=== PATIENT | male | born 1935 | race Caucasian/White ===

== ENCOUNTER 2017-09-08 01:07 | Emergency (ER) | payer OTHER ==
[~2017-09-08] VITALS: Ht 167.6 cm; Wt 79.4 kg
[2017-09-08] MEDS ORDERED: IOHEXOL 350 MG/ML 100ML IJ ONE (01:59)
[2017-09-08] MEDS ORDERED: SODIUM CHLORIDE 0.9% 1,000 ML IV ONE (02:00)
[2017-09-08 02:22] LABS: Basophils # (auto) 0.1 uL; Basophils % (auto) 0.6 % (0.0-2.0); Eosinophils # (auto) 0.2 uL; Eosinophils % (auto) 1.6 % (0.0-7.0); Hematocrit 38.2 % (41.0-53.0); Hemoglobin 12.5 g/dL (13.5-17.5); Lymphocytes % (auto) 7.9 % (10.0-50.0); Mean Corpuscular Hemoglobin 31.9 pg (28.0-32.0); Mean Corpuscular Hgb Conc. 32.8 g/dL (32.0-36.0); Mean Corpuscular Volume 97.3 fL (80.0-100.0); Monocytes # (auto) 1.8 uL; Neutrophils # (auto) 9.6 uL; Neutrophils % (auto) 75.9 % (37.0-80.0); Platelet Count (auto) 194 10^3/uL (140-450); Red Blood Cells 3.93 10^6/uL (4.5-5.90); Red Cell Distribution Width 14.4 % (11.8-14.3); White Blood Cell 12.7 10^3/uL (4.4-10.8)
[2017-09-08 02:38] LABS: Albumin 3.1 g/dL (3.4-5.0); BUN/Creatinine Ratio 22.9; Calcium 8.3 mg/dL (8.5-10.1); Potassium 4.1 mmol/L (3.5-5.1)
[2017-09-08 02:40] LABS: Bilirubin, Total 0.4 mg/dL (0.2-1.0); Total Protein 6.1 g/dL (6.4-8.2)
[2017-09-08 02:43] LABS: INR 1.07 (0.9-1.15); Partial Thromboplastin Time 29.9 sec (22.64-33.71); Prothrombin Time 11.7 sec (9.37-12.3)
[2017-09-08] MEDS ORDERED: cefTRIAXone 1GM/10ml IVPUSH 10 ML IV ONE (04:30)
[2017-09-08 05:15] VITALS: BP 99/56
== END 2017-09-08 05:37 | disposition home or self-care (01) ==
LOC: ER 01:07
DX: R06.02 Shortness of breath (principal); D72.829 Elevated white blood cell count, unspecified; E86.0 Dehydration; J98.11 Atelectasis; I10 Essential (primary) hypertension; Z90.49 Acquired absence of other specified parts of digestive tract
CPT/HCPCS: 36415; 71045; 80053; 84484; 85025; 85379; 85610; 85730; 96361; 96374; 99285; J7030